=== PATIENT | female | born 1995 | race Caucasian/White ===

== ENCOUNTER 2019-03-02 09:37 | Emergency (ER) | payer BC ==
[2019-03-02] MEDS ORDERED: Lidocaine 1% MDV 20 ML INJ ONE (10:24)
[2019-03-02 10:45] LABS: ABS Basophils 0.1 10^3/ul (0-0.2); ABS Eosinophils 0.1 10^3/ul (0-0.6); ABS Lymphocytes 1.6 10^3/ul (1.0-4.8); ABS Monocytes 0.8 10^3/ul (0-0.8); ABS Neutrophils 6.5 10^3/ul (1.5-7.7); Hematocrit 37 % (35-47); Hemoglobin 12.7 g/dL (12.0-16.0); Lymphocyte % 17.7 %; Mean Corpuscular HGB Conc 34 g/dL (31-36); Mean Corpuscular Hemoglobin 31 pg (27-31); Mean Corpuscular Volume 91 fL (80-97); Platelet Count 340 10^3/uL (150-450); Red Cell Distribution Width 13 % (10-15)
[2019-03-02] MEDS: NS 0.9% 1000 ML** 1,000 ML IV.FLUID IV ONE ×2 (10:49→10:56)
[2019-03-02] MEDS ORDERED: Lidocaine 1% MPF ** 5 ML VIAL INJ ONE (11:00)
[2019-03-02] MEDS ORDERED: Vancomycin(*) 750 MG in NS 0.9% 250 ML* 250 ML IVPB ONE (11:00)
[2019-03-02 11:13] LABS: Albumin 4.4 g/dL (3.2-5.2); Albumin/Globulin Ratio 1.6 (1-3); BUN/Creatinine Ratio 12.2 (8-20); Calcium 9.5 mg/dL (8.6-10.3); EGFR African American 119.9 (>60); EGFR Non-African American 99.1 (>60); Globulin 2.8 g/dL (2-4); Potassium 3.3 mmol/L (3.5-5.0); Total Bilirubin 0.3 mg/dL (0.2-1.0); Total Protein 7.2 g/dL (6.4-8.9)
[2019-03-02] MEDS ORDERED: Lorazepam PYXIS KEY PRN (11:46)
[2019-03-02] MEDS ORDERED: LORazepam INJ* 2 MG/ML 1 ML VIAL IV PUSH ONE (11:46)
[2019-03-02] MEDS ORDERED: LORazepam INJ* 2 MG/ML 1 ML VIAL ONE (11:48)
[2019-03-02] MEDS ORDERED: Lorazepam PYXIS KEY ONE (11:48)
--- NOTE | 2019-03-02 11:59 | ED ---
Throat Pain/Nasal Congestion - HPI Summary HPI Summary: 23-year-old female presents with left ear swelling for past week. She had a piecing of her cartilage done 3 weeks ago. She was keeping the area clean and a week later the area started to become red. She states she started a course of Keflex andit seems worse. She was started on Doxycline 3 days ago. She has not seen any improvement. She denies any fevers or chills. States swelling has increased to ears. States areas feels warm. She is an extreme pain. Has had drainage from the posterior aspect ear. She states she was keeping the area clean. She has continues to soak the area and drainage continues to occur. Has no medical conditions. - History of Current Complaint Chief Complaint: EDEarPain Time Seen by Provider: 03/02/19 09:58 - Allergies/Home Medications Allergies/Adverse Reactions: Allergies Allergy/AdvReac Type Severity Reaction Status Date / Time sulfamethoxazole Allergy Rash Verified 03/02/19 09:44 [From Bactrim] trimethoprim [From Bactrim] Allergy Rash Verified 03/02/19 09:44 Home Medications: Home Medications Melatonin [Meladox] 3 mg PO BEDTIME PRN 03/02/19 [History Confirmed 03/02/19] Zolpidem Tartrate [Ambien] 5 mg PO BEDTIME PRN 03/02/19 [History Confirmed 03/02] PMH/Surg Hx/FS Hx/Imm Hx Endocrine/Hematology History: Denies: Hx Anticoagulant Therapy Respiratory History: Denies: Hx Asthma Infectious Disease History: No Infectious Disease History: Denies: Traveled Outside the [place] in Last 30 Days - Family History Known Family History: Positive: Non-Contributory - Social History Alcohol Use: Occasionally Substance Use Type: Reports: None Smoking Status (MU): Never Smoked Tobacco Review of Systems Negative: Fever Positive: Other - swelling to left ear Negative: Chest Pain Negative: Shortness Of Breath All Other Systems Reviewed And Are Negative: Yes Physical Exam Triage Information Reviewed: Yes Vital Signs On Initial Exam: Initial Vitals Temp Pulse Resp BP Pulse Ox 99.2 F 122 16 132/92 98 03/02/19 09:41 03/02/19 09:41 03/02/19 09:41 03/02/19 09:41 03/02/19 09:41 Vital Signs Reviewed: Yes Appearance: Positive: Well-Appearing Skin: Positive: Warm, Dry Eyes: Positive: Normal, EOMI, [place], Conjunctiva Clear ENT: Positive: Pharynx normal, Other - erythema and edema to left ear Respiratory/Lung Sounds: Positive: Clear to Auscultation, Breath Sounds Present Cardiovascular: Positive: Normal, RRR Musculoskeletal: Positive: Normal Neurological: Positive: Normal Psychiatric: Positive: Normal Diagnostics - Vital Signs Vital Signs Temp Pulse Resp BP Pulse Ox 03/02/19 11:51 24 03/02/19 11:06 86 129/87 98 03/02/19 11:00 97 97 03/02/19 10:36 91 135/94 100 03/02/19 10:06 108 132/88 97 03/02/19 09:41 99.2 F 122 16 132/92 98 - Laboratory Lab Results: Lab Results 03/02/19 03/02/19 03/02/19 Range/Units 10:35 10:35 10:35 WBC 9.0 (3.5-10.8) 10^3/uL RBC 4.10 (3.70-4.87) 10^6 /uL Hgb 12.7 (12.0-16.0) g/dL Hct 37 (35-47) % MCV 91 (80-97) fL MCH 31 (27-31) pg MCHC 34 (31-36) g/dL RDW 13 (10-15) % Plt Count 340 (150-450) 10^3/uL MPV 7.0 L (7.4-10.4) fL Neut % (Auto) 72.0 % Lymph % (Auto) 17.7 % Harmon % (Auto) 8.7 % Eos % (Auto) 1.0 % Baso % (Auto) 0.6 % Absolute Neuts (auto) 6.5 (1.5-7.7) 10^3/ul Absolute Lymphs (auto) 1.6 (1.0-4.8) 10^3/ul Absolute Monos (auto) 0.8 (0-0.8) 10^3/ul Absolute Eos (auto) 0.1 (0-0.6) 10^3/ul Absolute Basos (auto) 0.1 (0-0.2) 10^3/ul Absolute Nucleated RBC 0.0 10^3/ul Nucleated RBC % 0.0 Sodium 139 (135-145) mmol/L Potassium 3.3 L (3.5-5.0) mmol/L Chloride 105 (101-111) mmol/L Carbon Dioxide 27 (22-32) mmol/L Anion Gap 7 (2-11) mmol/L BUN 9 (6-24) mg/dL Creatinine 0.74 (0.51-0.95) mg/dL Est GFR ( Amer) 119.9 (>60) Est GFR (Non-Af Amer) 99.1 (>60) BUN/Creatinine Ratio 12.2 (8-20) Glucose 89 (70-100) mg/dL Lactic Acid 0.7 (0.5-2.0) mmol/L Calcium 9.5 (8.6-10.3) mg/dL Total Bilirubin 0.30 (0.2-1.0) mg/dL AST 14 (13-39) U/L ALT 9 (7-52) U/L Alkaline Phosphatase 78 (34-104) U/L Total Protein 7.2 (6.4-8.9) g/dL Albumin 4.4 (3.2-5.2) g/dL Globulin 2.8 (2-4) g/dL Albumin/Globulin Ratio 1.6 (1-3) Result Diagrams: 03/02/19 10:35 03/02/19 10:35 Lab Statement: Any lab studies that have been ordered have been reviewed, and results considered in the medical decision making process. Re-Evaluation - Re-Evaluation First Eval Re-Evaluation Time: 11:58 Comment: patient became too anxious to do procedure EENT Course/Dx - Course Course Of Treatment: 23-year-old female presents with left ear swelling for past week. She had a piecing of her cartilage done 3 weeks ago. She was keeping the area clean and a week later the area started to become red. She states she started a course of Keflex andit seems worse. She was started on Doxycline 3 days ago. She has not seen any improvement. She denies any fevers or chills. States swelling has increased to ears. States areas feels warm. She is an extreme pain. Has had drainage from the posterior aspect ear. She states she was keeping the area clean. She has continues to soak the area and drainage continues to occur. Has no medical conditions. On exam has erythema and edema noted to the left ear. Some drainage noted there. Has piece of gauze in left ear that removed and got some pus removed from area . Performed block which patient did not tolerate well. unclear where to incise area. spoke with dr boyd who said to irrigate area which did, told to milk area and get drainage which also did and got copious amount of pus and told to place on cipro. will have follow up tomorrow. patient understand and agrees with plan. - Differential Diagnoses Differential Diagnoses: Cellulitis, Other - abscess, hematoma - Diagnoses Provider Diagnoses: Abscess of earlobe Discharge ED - Sign-Out/Discharge Documenting (check all that apply): Patient Departure Patient Received Moderate/Deep Sedation with Procedure: No - Discharge Plan Condition: Good Disposition: HOME Patient Education Materials: Abscess (ED) Referrals: [facility] - Marito LAU [Primary Care Provider] - Demarcus Boyd MD [Medical Doctor] - Additional Instructions: Take antibiotic twice a day for 10 days, first dose given in ED Apply warm compresses to area Take ibuprofen or Tylenol for pain every 6 hours Follow up with ENT tomorrow at 8:15am Return to ED if develop fever, area of redness spreads, or any new or worsening symptoms - Billing Disposition and Condition Condition: GOOD Disposition: Home
[2019-03-02] MEDS ORDERED: Morphine 4 MG/ML VIAL (1 ml) 4 MG/ML VIAL IV ONE (12:18)
[2019-03-02] MEDS ORDERED: Ciprofloxacin TAB* 500 MG PO ONE (13:49)
[2019-03-02] MEDS ORDERED: HYDROcodone/ACETAMIN 5-325 MG* 1 TAB PO ONE (14:20)
[2019-03-02 14:27] VITALS: BP 124/85
--- NOTE | 2019-03-04 06:01 | PN ---
Progress Note - Progress Note Date of Service: 03/04/19 Note: patient wound culture grew pseudomonas. patient placed on cipro. will wait for final culture for sensitivity.
== END 2019-03-02 14:40 | disposition home or self-care (01) ==
LOC: ED 09:37
DX: H60.02 Abscess of left external ear (principal); Z79.899 Other long term (current) drug therapy
CPT/HCPCS: 36415; 80053; 83605; 85025; 87040; 87070; 87077; 87186; 87205; 87640; 87641; 96361; 96365; 96375; 99283; A9270-GY; J2060; J2270; J3370